=== PATIENT | female | born 1975 | race Caucasian/White ===

== ENCOUNTER 2017-03-19 00:02 | Emergency (ER) | payer MEDICAID ==
[~2017-03-19] VITALS: Ht 170.2 cm; Wt 79.4 kg
[~2017-03-19 00:02] MED LIST: PREDNISONE 20MG20 MG PO; ROBAXIN-750750 MG PO
--- OUTSIDE RECORDS SUMMARY | 2017-03-19 00:37 | External Medical Summary Rpt | CCD ---
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 ti OD 10 0- 0- 00 AN 60 EN ve ON [address] E 30 08 08 IA RF [address] OLIVAS MG UG RK S E TA IN BL C ET TR 50 10 10 00 30 30 AL 19 No Ac AZ 11 -1 -2 .0 EX 04 t ti OD 10 0- 3- 00 AN 60 Av ve ON [address] ai E 30 08 08 IA la [address] bosch MG UG S TA IN BL C ET CI 65 10 10 00 15 30 AL 19 No Ac TA 86 -0 -2 .0 EX 04 t ti LO 20 9- 3- 00 AN 58 Av ve CO [address] ai AM 70 08 08 IA la [address] hiro Man UG 40 S IN MG C TA BL ET IM 00 10 10 00 9. 30 AL 19 No Ac IT 17 -1 -2 00 EX 04 t ti RE 30 0- 3- 0 AN 59 Av ve X [address] ai 10 70 08 08 IA la [address] e UG TA S BL IN ET C 00 04 04 00 8. 1 WA 25 No Ac 59 -1 -2 00 LG 95 t ti 10 5- 4- 0 RE 14 Av ve 34 20 20 EN 2 ai 90 08 08 # la 5 bl 07 e 34 6 IM 00 10 04 00 9. 28 RE 66 No Ac IT 17 -1 -2 00 MK 74 t ti RE 30 7- 4- 0 E 93 Av ve X 73 20 20 PH 1 ai 50 60 07 08 AR la 1 MA bl MG CY e TA #9 BL ET IM 00 10 04 03 9. 20 AL 15 No Ac IT 17 -1 -1 00 EX 50 t ti RE 30 7- 7- 0 AN 50 Av ve X [address] nathaly 10 70 07 08 IA la [address] hiro HERNANDEZ TA S BL IN ET C 00 03 04 00 30 10 WA 25 No Ac 59 -2 -1 .0 LG 86 t ti 13 7- 0- 00 RE 49 Av ve 46 20 20 EN 2 ai 60 08 08 # la 5 bl 07 e 34 6 00 03 04 00 15 1 WA 25 No Ac 59 -2 -1 .0 LG 84 t ti 10 2- 0- 00 RE 21 Av ve 34 20 20 EN 3 ai 90 08 08 # la 5 bl 07 e 34 6 CY 50 03 04 00 30 10 WA 25 No Ac CL 11 -2 -1 .0 LG 86 t ti OB 10 7- 0- 00 RE 49 Av ve EN 56 20 20 EN 3 ai ZA 30 08 08 # la CO 3 bl IN 07 e E 34 10 6 MG TA BL ET 00 03 04 00 20 5 WA 25 No Ac 59 -2 -1 .0 LG 86 t ti 10 7- 0- 00 RE 49 Av ve 34 20 20 EN 4 ai 90 08 08 # la 5 bl 07 e 34 6 00 01 03 00 8. 3 AL 16 No Ac 40 -1 -2 00 EX 49 t ti 60 6- 5- 0 AN 17 Av ve [address] nathaly 70 08 08 IA la [address] hiro HERNANDEZ S IN C Procedures Procedure DOS Code Location Performer Comment CLOSURE 8659 [facility] SKIN&SUBC 8 TC TC UTANEOUS TISSUE MEDICALCE MEDICALCE OTHER NTER NTER SITES Encounters Encounter Start End Date Code Location Performer Type Date HOSPITAL ST - 6 6 [facility] ST - 6 6 [facility] - 6 6 [facility] - 5 5 [facility] - 5 5 [facility] - 5 5 [facility] - 5 5 [facility] [address]
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
--- OUTSIDE RECORDS SUMMARY | 2017-03-19 00:42 | External Medical Summary Rpt | CCD ---
Author Author , STACI Perea STACI Address Unknown Phone [email or web address] Team Providers Care Senior Marketing Data Analyst Name Role Phone [facility], Unavailable Unavailable [facility], Unavailable Unavailable [facility] MCMILLAN JAM, MCMILLAN JAM Unavailable Unavailable BECKY PEREZ, Unavailable Unavailable BECKY PEREZ [facility] Un[facility], [facility] Unavailable Unavailable PHYSICIANS, [facility] # [id number], Unavailable Unavailable [facility] # [id number] [facility] CLYDE CORNELIUS, Unavailable Unavailable [facility], Unavailable Unavailable [facility] PRINCE TALBOT, PRINCE ANTIONE Unavailable Unavailable [facility], Unavailable Unavailable [facility], [facility] INDEP[facility]ENT Unavailable Unavailable ANESTHESIOLOGIST, [facility] ANESTHESIOLOGIST EITAN CORRAL JONES, Unavailable Unavailable GEORGINA WILEY, Unavailable Unavailable GEORGINA REED M E, Unavailable Unavailable Billy POLO, Unavailable Unavailable [facility], Unavailable Unavailable [facility], [facility], Unavailable Unavailable [facility] BONIFACIO MIRANDA, Unavailable Unavailable BONIFACIO MIRANDA [facility], Unavailable Unavailable [facility] Unavailable Unavailable MEDICATION MANAGER , [facility] MEDICATION MANAGER [facility] Unavailable Unavailable CENTER O/, [facility] Unavailable Unavailable [facility] Unavailable Unavailable PHYSICIANS, [facility] Unavailable Unavailable [facility] # [id number], Unavailable Unavailable [facility] # [id number] VANGIE MORENO, Unavailable Unavailable VANGIE MORENO Purpose Continuity of Care Document - 07-14-2007 through 2016 Problems Code Diagnosis DOS Provider Status [id number] CARPAL 12-10-2016 [facility]OME [facility] RIGHT UPPER LIMB [id number] PAIN IN 12-10-2016 [facility] RIGHT WRIST [facility], [facility] H6980 OTHER SPEC 11-23-2016 [facility] TUBE UNS EAR J029 ACUTE 11-23-2016 [facility] PHARYNGITIS [facility] UNSPECIFIED R05 COUGH 11-23-2016 [facility] R093 ABNORMAL 11-23-2016 [facility] SPUTUM [facility] R1031 RIGHT LOWER 10-16-2016 [facility] PAIN PHYSICIANS R1032 LEFT LOWER 10-16-[address] PAIN PHYSICIANS Z6826 BODY MASS 10-16-2016 ST INDEX BMI TC 26.0-26.9 PHYSICIANS ADULT B9789 OTH VIRAL 06-29-2016 ST AGENT CAUSE TC DISEASES PHYSICIANS CLASSIFIED ELSW [id number] OTHER ACUTE 06-29-2016 ST TC NONSUPPURAT PHYSICIANS [...] 01-02-2016 ST SCREEN [facility] INFECTIONS MED CTR MEDICATION MANAGER SEXL MODE ST TRANSMISSN Z7251 HIGH RISK 01-02-2016 ST HETEROSEXUA TC L BEHAVIOR MED CTR MEDICATION MANAGER ST E559 VITAMIN D 01-01-2016 ST DEFICIENCY TC UNSPECIFIED MED CTR MEDICATION MANAGER ST Z0000 ENCOUNTER 01-01-2016 ST GEN ADULT TC MED EXAM MED CTR MEDICATION MANAGER W/O ST ABNORMAL FIND Z114 ENCOUNTER 01-01-2016 FOR TC SCREENING PHYSICIANS FOR HIV Z1329 ENCOUNTER 01-01-2016 ST SCREEN OTH TC SUSPECTED MED CTR MEDICATION MANAGER ENDOCRN ST DISORDER A084 VIRAL 12-25-2015 INTESTINAL TC INFECTION PHYSICIANS UNSPECIFIED I8312 VARICOSE 11-26-2015 VEINS LT TC LOWER PHYSICIANS EXTREMITY W/INFLAMMAT ION M545 LOW BACK 11-26-2015 PAIN TC PHYSICIANS [id number] LAC W/O FB 11-26-2015 ST RT LITTLE TC FINGER W/O PHYSICIANS DAMAGE NAIL INIT L15206 ENCOUNTER 11-26-2015 FOR TC SCREENING PHYSICIANS FOR LIPOID DISORDERS M5432 SCIATICA 06-23-2015 [facility] LEFT SIDE PHYSICIANS, PLLC M5442 LUMBAGO 06-23-2015 [facility] LEFT SIDE W33875 OTHER 06-23-2015 [facility] MUSCLE [facility], SPASM PLLC R238 OTHER SKIN 01-31-2015 ST CHANGES TC PHYSICIANS 4610 ACUTE 01-01-2015 MAXILLARY TC SINUSITIS PHYSICIANS 2689 UNSPECIFIED 10-19-2014 VITAMIN D TC DEFICIENCY PHYSICIANS 2724 OTHER AND 10-19-2014 ST UNSPECIFIED TC MED CTR MEDICATION MANAGER HYPERLIPIDE ST MAYURI V700 ROUTINE 10-19-2014 GENERAL TC MEDICAL MED CTR MEDICATION MANAGER EXAM@HEALTH ST CARE FACL V7612 OTHER 08-30-2014 ST SCREENING TC MAMMOGRAM MED CTR MEDICATION MANAGER ST 84657 OBESITY, 06-18-2014 ST UNSPECIFIED TC MED CTR MEDICATION MANAGER ST V4989 OTHER SPEC 06-18-2014 CONDITIONS TC INFLUENCING MED CTR MEDICATION MANAGER HEALTH ST STATUS 92437 CONTUSION 12-19-2013 MCMILLAN JAM OF HAND 9594 INJURY 12-17-2013spring OTHER AND URGENT UNSPECIFIED CARE HAND EXCEPT FINGER E9179 OTHER 12-17-2013spring STRIKING URGENT AGAINST CARE W/WO SUBSEQUENT FALL 3671 MYOPIA 08-09-2013 PRINCE JAM 3569 UNSPEC 09-16-2010 PATEL HEREDIT&IDI BIJAN OPATHIC PERIPHERAL NEUROPATHY 7820 DISTURBANCE 09-16-2010 PATEL OF SKIN BIJAN SENSATION 58580 MIGRAINE 07-30-2010 PATEL W/AURA W/O BIJAN INTRACT W/O STATUS MIGRNOSUS V7260 LABORATORY 07-10-2010 EXAMINATION TC MEDICALCENT UNSPECIFIED ER 2181 INTRAMURAL 03-12-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 [facility] 6173 ENDOMETRIOS 03-12-2010 IS OF [facility] PELVIC [facility] PERITONEUM 6179 ENDOMETRIOS 03-12-2010 IS, SITE TC UNSPECIFIED PHYSICIANS 6253 DYSMENORRHE 03-12-2010 INDEPENDENT A ANESTHESIOL OGIST 6259 UNSPEC 03-12-2010 SYMPTOM TC ASSOC PHYSICIANS W/FEMALE GENITAL ORGANS 6262 EXCESSIVE 03-12-2010 OR [facility]REQUENT [facility] [place]ICIANS M[place]AT[place] N 37307 PAP SMER 02-07-2010 CERV [facility] W/ATYPICAL MEDICALCENT SQUAMOUS ER CELLS UNDET V762 SCREENING 02-07-2010 FOR [facility] MALIGNANT MEDICALCENT NEOPLASM OF ER THE CERVIX 15488 MIGRAINE 11-22-2009 EMERGENCY UNSP W/O CARE PHYS INTRACT W/O [facility] STATUS MIGRAINOSUS 99034 MIGRAINE 08-01-2008 [facility] W/O AURA MEDICAL W/O INTRACT GROUP W/O STAT MIGRNOSUS 7840 HEADACHE 07-07-2008 [facility] 6264 IRREGULAR 05-10-2008 MENSTRUAL [facility] CYCLE MEDICALCENT ER V7231 ROUTINE 05-10-2008 GYNECOLOGIC [facility] AL MED CTR EXAMINATION 8730 OPEN WOUND 02-28-2008 [facility] WITHOUT MED CTR MENTION COMPLICATIO N 8739 OTHER&UNSPE 02-28-2008 [facility] CIFIED [facility] WOUND OF HEAD COMPLICATED E8881 FALL 02-28-2008 RESULTING [facility] IN STRIKING MEDICALCENT AGAINST ER OTHER OBJECT E9289 UNSPECIFIED 02-28-2008 ACCIDENT [facility] 8479 SPRAIN AND 07-21-2007 [facility] STRAIN OF MEDICAL UNSPECIFIED GROUP SITE OF BACK 93603 OTHER ACUTE 07-16-2007 [facility] 7242 LUMBAGO 07-16-2007 EMERGENCY CARE PH[facility] [place] 7244 THORACIC/PRIETO 07-16-2007 EMERGENCY MBOSACRAL CARE PHYS NEURITIS/RA [facility] [place] DICULITIS UNSPEC V5869 LONG-TERM 07-16-2007 [facility] USE OF EAST OTHER MEDICATIONS 9150 ABRASION/FR 07-14-2007 [facility] FINGER W/O PSC MENTION INF 9233 CONTUSION 07-14-2007 EMERGENCY OF FINGER CARE PHYS [facility] Medications Na ND Rx Da Fi Fi [...] 91 [place] ZA 11 17 17 47 [place] 0 12 CV IN S E PH [...] PH AR MA CY #0 54 37 [place] 00 08 09 10 5 00 KE [...] .0 00 NT ti IC 20 1- - 00 UC ve IL 01 20 20 90 [place] LI 50 17 17 59 N 1 09 CV 87 S 5 PH MG AR MA TA CY BL ET LL C, DB A CV S PH AR MA CY #0 54 37 FL 65 07 08 30 30 00 KE Ac UO 86 -0 -1 .0 00 NT ti XE 20 7- 00 UC ve TI 19 20 [...] .0 00 NT ti XE 10 7- 00 UC ve TI 64 20 20 [...] -2 .0 00 NT ti XE 10 3 00 UC ve TI 64 20 20 88 [place] NE 80 17 17 74 1 93 CV HC S L PH 20 AR MA MG CY CA LL PS C, UL E DB A CV S PH AR MA CY #0 54 37 FL 49 05 06 30 30 00 KE Ac UO 88 -0 -0 .0 00 NT ti XE 40 00 UC ve TI 87 20 20 [...] 0- 00 00 UC ve ON 20 20 84 [place] E 00 17 17 [...] 8- 3- 00 00 UC ve ON 15 20 20 84 [place] E 00 16 17 [...] 4- 5- [address] 40 20 20 AR LL L 40 [...] 8 CY MARY CE # HN TA CT 05 NO 43 PH 7 N 10 [...] 11 11 IA JR [address] FAISLA HERNANDEZ ME S S J DI 00 [...] 8 CY MARY CE # HN TA CT 05 NO 43 PH 7 N 10 -3 25 [place] 00 04 04 1 55 10 CV 56 OC Ac ED 59 -0 -1 .0 S 71 ON ti NI 15 6- 7- 00 PH 41 NE ve SO 44 20 20 AR LL NE 20 11 11 MA 1 CY MARY 10 # HN MG 05 43 TA 7 BL ET 00 03 04 3 90 [...] ME TA S S BL J ET ES 00 11 04 9 30 30 AL 34 HE Ac TR 59 -2 -1 .0 EX 54 NS ti AD 10 3- 4- 00 AN 78 LE ve IO [address] Y L [address] MIKE UG N TA S L BL ET HY 00 04 04 1 60 15 CV [address] 60 -0 -0 .0 S 71 ON ti OC 33 6- 6- 00 PH 39 NE ve OD 88 20 20 AR LL ON 72 11 11 MA -A 8 CY MARY CE # HN TA CT 05 NO 43 PH 7 N 10 -3 25 TI 00 04 04 4 60 20 CV 56 OC Ac ZA 37 -0 -0 .0 S 71 ON ti NI 80 6- 6- 00 PH 40 NE ve DI 72 20 20 AR LL NE 41 11 11 MA 9 CY MARY HC # HN L 4 05 MG 43 7 TA BL ET [place] 00 04 04 1 55 10 CV 56 OC Ac ED 59 -0 -0 .0 S 71 ON ti NI 15 6- 6- 00 PH 41 NE ve SO 44 20 20 AR LL NE 20 11 11 MA 1 CY MARY 10 # HN MG 05 43 TA 7 BL ET TO 31 04 04 4 12 30 CV 56 OC Ac PI 72 -0 -0 0. S 71 ON ti RA 20 6- 6- 00 PH 42 NE ve MA 27 20 20 0 AR LL TE 96 11 11 MA 0 CY AMRY 50 # HN MG 05 43 TA 7 BL ET SE 00 03 03 0 [address] Ac RO 31 -1 -1 .0 EX 51 EW ti QU 00 7 8 AN 80 AR ve EL [address] Brinda 11 11 11 IA JR [address] FAISAL HERNANDEZ ME S S TA J BL ET ES 00 11 03 9 30 30 AL 34 HE Ac TR 59 -2 -1 .0 EX 54 NS ti AD 10 3 7 00 AN 78 LE ve IO [address] Y L [address] MIKE HERNANDEZ N TA S L BL ET CI 16 03 03 0 [address] Ac [place] 25 -1 -1 .0 EX 51 EW ti OF 20 7 7 AN 78 AR ve LO [address] Brinda XA 50 11 11 IA JR CI [address] FAISAL HERNANDEZ ME L S S 50 J 0 MG TA B 00 03 03 3 [address] Ac 59 -1 -1 .0 EX 51 EW ti 10 AN 91 AR ve 38 20 20 [...] TA S S BL J ET 00 12 03 3 [address] Ac 59 -1 -1 .0 EX 75 EW ti 10 7 0 AN 48 AR ve [address] Brinda 50 10 11 IA JR [address] FAISAL HERNANDEZ ME S S J ES 00 11 02 9 30 30 AL 34 HE Ac TR 59 -2 -1 .0 EX 54 NS ti AD 10 6 AN 78 LE ve IO [address] Y L [address] MIKE HERNANDEZ N TA S L BL ET TO 13 08 02 6 [address] Ac PI 66 -1 -1 .0 EX 71 EW ti RA 80 2- 1- 00 AN 15 AR ve MA 03 [...] EX 75 EW ti EP 15 7- 1- 00 AN 52 AR ve AM [address] T 5 91 10 11 IA JR [address] FAISAL NELSON TA S S BL J ET ES 00 11 01 9 30 30 AL 34 HE Ac TR 59 -2 -1 .0 EX 54 NS ti AD 10 3- 8- 00 AN 78 LE ve IO 48 [...] DR FAISAL HERNANDEZ ME S S J TO 13 08 01 6 [address] Ac PI 66 -1 -0 .0 EX 71 EW ti RA 80 2- 5- 00 AN 15 AR ve MA [address] T TE 26 10 11 IA JR [address] FAISAL NELSON MG S S J TA BL ET DI 00 12 01 1 [address] Ac AZ 59 -1 -0 .0 EX 75 EW ti EP 15 7- 5- 00 AN 52 AR ve AM [address] T 5 91 10 11 IA JR [address] FAISAL NELSON TA S S BL J ET ES 00 11 12 9 30 30 AL 34 HE Ac TR 59 -2 -2 .0 EX 54 NS ti AD 10 3- 0- 00 AN 78 LE ve IO [address] Y L [address] MIKE HERNANDEZ N TA S L BL ET 00 12 12 3 [address] Ac 59 -1 -1 .0 EX 75 EW ti 10 7- 7- 00 AN 48 AR ve [address] T 50 10 10 IA JR [address] FAISAL NELSON S S J CI 55 12 12 0 6. [address] Ac [place] 11 -1 -1 00 EX 75 EW ti OF 10 7- 7- 0 AN 49 AR ve LO [address] T XA 60 10 10 IA JR CI [address] FAISAL HERNANDEZ ME L S S 25 J 0 MG TA B DI 00 12 12 0 [address] Ac AZ 59 -0 -0 .0 EX 65 EW ti EP 15 7- 7- 00 AN 74 AR ve AM [address] T 5 91 10 10 IA JR [address] FAISAL UG ME TA S S BL J ET 00 11 11 0 25 4 AL 34 HE Ac 59 -3 -3 .0 EX 60 NS ti 10 0- 0- 00 AN 07 LE ve [address] Y [address] MIKE UG N S L ES 00 11 11 [...] [address] MIKE EHRNANDEZ N S L OX 00 11 11 [...] 10 IA JR [address] MALONE UG ME MG S S J TA BL ET 00 10 11 1 [address] Ac 59 -2 -1 .0 EX 26 EW ti 10 0- 8- 00 AN 35 AR ve [address] Brinda 50 10 10 IA JR [address] MALONE UG ME S S J AM 00 10 10 0 [address] Ac OX 09 -2 -2 .0 EX 26 EW ti IC 33 0- 0- 00 AN 33 AR ve [place] [address] Brinda LI 90 10 10 IA JR N [address] FAISAL 0 UG ME MG S S J CA PS UL E ME 51 10 10 0 [address] Ac TH 99 -2 -2 .0 EX 26 EW ti YL 10 0- 0- 00 AN 34 AR ve [place] [address] T ED 83 10 10 IA JR NI [address] MALONE LO UG ME NE S S 4 J [...] DR FAISAL HERNANDEZ OR S S J TO 08 09 6 [address] Ac PI 66 -1 -1 .0 EX 71 EW ti RA 80 2- 0- 00 AN 15 AR ve MA [address] T TE 26 10 10 IA JR [address] FASIAL NELSON MG S S J TA BL ET 00 08 08 1 [address] Ac 59 -2 -2 .0 EX 83 EW ti 10 7- 9- 00 AN 82 AR ve [address] T 90 10 10 IA JR [address] FAISAL HERNANDEZ ME S S J 00 08 08 1 [address] Ac 59 -1 -2 .0 EX 71 EW ti 10 2- 4- 00 AN 17 AR ve [address] T 90 10 10 IA JR [address] FAISAL HERNANDEZ ME S S J TO 13 08 08 6 [address] Ac PI 66 -1 -1 .0 EX 71 DD ti RA 80 2- 2- 00 AN 15 EN ve MA [address] DO TE 26 10 10 IA RF [address] DEISY HERNANDEZ RK MG S E TA BL ET [place] 10 08 08 1 [address] Ac OM 70 -1 -1 .0 EX 71 EW ti ET 20 2- 2- 00 AN 07 AR ve MARINELLI [address] T ZI 31 10 10 IA JR NE [address] FAISAL HERNANDEZ ME S S MG J TA BL ET CI 31 08 08 3 [address] Ac TA 72 -1 -1 .0 EX 71 EW ti LO 20 2- 2- 00 AN 16 AR ve [place] [address] Brinda AM 80 10 10 IA JR [address] FAISAL HERNANDEZ ME 40 S S J MG TA BL ET 00 08 08 1 [address] Ac 59 -1 -1 .0 EX 71 EW ti 10 2- 2- 00 AN 17 AR ve [address] Brinda 90 10 10 IA JR [address] FAISAL HERNANDEZ ME S S J TO 50 04 06 01 [address] Ac PA 45 -0 -0 .0 EX 72 DD ti MA 80 8- 4- 00 AN 59 EN ve X [address] 50 06 09 09 IA RF [address] DEISY HERNANDEZ RK TA S E BL IN ET C CI 65 05 06 [address] Ac TA 86 -0 -0 .0 EX 10 DD ti LO 20 8- 4- 00 AN 21 EN ve [place] [address] AM 70 09 09 IA RF [address] DEISY HERNANDEZ RK 40 S E IN MG C TA BL ET TO 13 04 05 01 [address] Ac PI 66 -0 -2 .0 EX 72 DD ti RA 80 8- 1- 00 AN 59 EN ve MA [address] NAIDU TE 26 09 09 IA RF [address] DEISY HERNANDEZ RK MG S E IN TA C BL ET CI 65 04 05 [address] Ac TA 86 -3 -0 .0 EX 94 DD ti LO 20 0- 7- 00 AN 65 EN ve [place] [address] NAIDU AM 70 09 09 IA RF [address] DEISY HERNANDEZ RK 40 S E IN MG C TA BL ET TO 50 04 04 00 [address] Ac PA 45 -0 -2 .0 EX 72 DD ti MA 80 8- 3- 00 AN 59 EN ve X [address] 50 06 09 09 IA RF [address] DEISY HERNANDEZ RK TA S E BL IN ET C CI 65 02 03 00 [address] Ac TA 86 -2 -1 .0 EX 32 DD ti LO 20 4- 2- 00 AN 28 EN ve [place] [address] AM 70 09 09 IA RF [address] DEISY HERNANDEZ RK 40 S E IN MG C TA BL ET 55 10 02 01 9. [address] Ac 11 -1 -2 00 EX 04 DD ti 10 0- 6- 0 AN 59 EN ve [address] DO 70 08 [address] DEISY HERNANDEZ RK S E IN C CI 65 01 01 00 [address] Ac TA 86 -0 -1 .0 EX 85 DD ti LO 20 6- 5- 00 AN 47 EN ve [place] [address] AM 70 09 09 IA RF [address] DEISY HERNANDEZ RK 40 S E IN MG C TA BL ET CI 65 10 12 02 [address] Ac TA 86 -0 -1 .0 EX 04 DD ti LO 20 9- 8- 00 AN 58 EN ve [place] [address] AM 70 08 08 IA RF [address] DEISY HERNANDEZ RK 40 S E IN MG C TA BL ET TR 50 10 12 02 [address] Ac AZ 11 -1 -1 .0 EX 04 DD ti OD 10 0- 8- 00 AN 60 EN ve ON [address] NAIDU E 30 08 08 IA RF [address] DEISY [place] UG RK S E TA IN BL C ET TR 50 10 11 01 [address] Ac AZ 11 -1 -2 .0 EX 04 DD ti OD 10 0- 0- 00 AN 60 EN ve ON [address] NAIDU E 30 08 08 IA RF [address] DEISY [place] UG RK S E TA IN BL C ET CI 65 10 11 01 [address] Ac TA 86 -0 -2 .0 EX 04 DD ti LO 20 9- 0- 00 AN 58 EN ve [place] [address] AM 70 08 08 IA RF [address] DEISY HERNANDEZ RK 40 S E IN MG C TA BL ET IM 00 10 10 00 9. 30 AL 19 No Ac IT 17 -1 -2 00 EX 04 t ti RE 30 0- 3- 0 AN 59 Av ve X [address] nathaly 10 70 08 08 IA la [address] e UG TA S BL IN ET C TR 50 10 10 00 30 30 AL 19 No Ac AZ 11 -1 -2 .0 EX 04 t ti OD 10 0- 3- 00 AN 60 Av ve ON [address] andersen E 30 08 08 IA la [address] bosch MG UG S TA IN BL C ET CI 65 10 10 00 15 30 AL 19 No Ac TA 86 -0 -2 .0 EX 04 t ti LO 20 9- 3- 00 AN 58 Av ve [place] [address] nathaly AM 70 08 08 IA la [address] hiro Man UG 40 S IN MG C TA BL ET IM 00 10 04 00 9. 28 RE 66 No Ac IT 17 -1 -2 00 MK 74 t ti RE 30 7- 4- 0 E 93 Av ve X 73 20 20 PH 1 ai 50 60 07 08 AR la 1 MA bl MG CY e TA #9 BL ET 00 04 04 00 8. 1 WA 25 No Ac 59 -1 -2 00 LG 95 t ti 10 5- 4- 0 RE 14 Av ve 34 20 20 EN 2 ai 90 08 08 # la 5 bl 07 e 34 6 IM 00 10 04 03 9. 20 AL 15 No Ac IT 17 -1 -1 00 EX 50 t ti RE 30 7- 7- 0 AN 50 Av ve X [address] ai 10 70 07 08 IA la [address] hiro GAY S BL IN ET C CY 50 03 04 00 30 10 WA 25 No Ac CL 11 -2 -1 .0 LG 86 t ti OB 10 7- 0- 00 RE 49 Av ve EN 56 20 20 EN 3 ai ZA 30 08 08 # la [place] 3 bl IN 07 e E 34 [...] e 34 6 00 03 04 00 30 10 WA [...] 17 Av ve [address] ai 70 08 08 [place] [address] hiro HERNANDEZ S IN C Procedures Procedure DOS Code Location Performer Comment CLOSURE [facility] SKIN&SUBC 8 [facility] UTANEOUS TISSUE MEDICALCE MEDICALCE OTHER NTER NTER SITES Encounters Encounter Start End Date Code Location Performer Type Date [facility]OSPITAL ST - 6 6 [facility] - 6 6 [facility] - 6 6 [facility] - 5 5 [facility] - 5 5 TC [facility] - 5 5 [facility] - 1 1 [facility] - 0 0 [facility] - 9 9 [facility] - 8 8 [facility] [place] [id number] 8 [facility]
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
--- OUTSIDE RECORDS SUMMARY | 2017-03-19 00:44 | External Medical Summary Rpt ---
Author Author STACI Loya, STACI Loya Organization [employer] Address Unknown Phone Unavailable
--- OUTSIDE RECORDS SUMMARY | 2017-03-19 00:44 | External Medical Summary Rpt | CCD ---
Demographics Preferred Language Turkmen Marital Status Unknown Confucianism Affiliation Unknown Race Unknown Ethnic Group Unknown Author Author , STACI SMALL Address Unknown Phone Immunization No patient found.
--- OUTSIDE RECORDS SUMMARY | 2017-03-19 00:44 | External Medical Summary Rpt | CCD ---
Demographics Preferred Language Telugu Marital Status Unknown Christian Affiliation Unknown Race Unknown Ethnic Group Unknown Author Author , STACI SMALL Address Unknown Phone Immunization No patient found.
[2017-03-19 01:07] VITALS: BP 129/77
--- NOTE | 2017-03-19 09:19 | RADIOLOGY REPORT PS360 ---
HAND-LT-3 VIEWS COMPARISON: Right wrist 12/10/2016 HISTORY: Left hand pain TECHNIQUE: AP lateral and oblique views FINDINGS: The carpal bones appear intact. The metacarpals and phalanges all appear intact with no fracture seen. Soft tissues are normal. IMPRESSION: Negative left hand
== END 2017-03-19 01:07 | disposition home or self-care (01) ==
LOC: ER 00:02
DX: S63.631A Sprain of interphalangeal joint of left index finger, initial encounter (principal); F17.210 Nicotine dependence, cigarettes, uncomplicated; F41.8 Other specified anxiety disorders; W22.8XXA Striking against or struck by other objects, initial encounter; Y92.012 Bathroom of single-family (private) house as the place of occurrence of the external cause